=== PATIENT | male | born 1940 | race African-American/Black ===

== ENCOUNTER 2016-10-26 17:50 | Emergency (ER) | payer OTHER ==
[2016-10-26 17:55] VITALS: BP 149/70; PULSE 102; TEMP 97.9; BMI 29.0
[2016-10-26] MEDS ORDERED: ACETAMINOPHEN 500 MG TABLET (FP) PO ONE (18:17)
[2016-10-26] MEDS ORDERED: DIPHTH,PERTUSS(ACELL),TET 0.5 ML DISP.SYRIN IM ONE (18:17)
--- NOTE | 2016-10-26 18:21 | PDOC ---
History of Present Illness - General Chief Complaint: Injury Stated Complaint: INJURY Time Seen by Provider: 10/26/16 18:11 History Source: Patient Exam Limitations: No Limitations - History of Present Illness Initial Comments: 10/26/16 18:16 While assisting his disabled both stumbled while riding an escalator down. He fell while trying to catch his striking his right knee, right shoulder and upper arm and abrading his left index finger. No head injury, no torso injury, patient denies significant bone injury, feels is probably just bruised. 10/26/16 18:24 Occurred: reports: just prior to arrival, this afternoon Severity: reports: mild, moderate Pain Location: reports: lower extremity (right knee ), upper extremity (right arm -) Modifying Factors: improves with: None Loss of Consciousness: no loss of consciousness Associated Symptoms (Fall): denies symptoms Past History - Travel Traveled outside of the country in the last 30 days: No Close contact w/someone who was outside of country & ill: No - Past Medical History Allergies/Adverse Reactions: Allergies Allergy/AdvReac Type Severity Reaction Status Date / Time No Known Allergies Allergy Verified 10/26/16 17:55 Home Medications: Ambulatory Orders Aspirin Coated [Ecotrin -] 81 mg PO DAILY 07/08/14 Calcium Citrate/Vitamin D3 [Citracal-Vit D 200 mg-250 Tab] 2 each PO DAILY 07/08 Metformin HCl [Glucophage] 500 mg PO DAILY 07/08/14 Metoprolol Succinate [Toprol XL -] 25 mg PO DAILY 07/08/14 Multivitamin/Iron/Folic Acid [One Daily Multivitamin-Iron Tb] 1 each PO DAILY Quinapril HCl [Accupril -] 20 mg PO DAILY 07/08/14 Salmeterol/Fluticasone [Advair 100Mcg/50Mcg -] 1 inh PO BID 07/08/14 Asthma: Yes Cancer: Yes (PROSTATE) Diabetes: Yes (NIDDM) GI Disorders: Yes (DIVERTICULOSIS, HH) Disorders: Yes (BPH) HTN: Yes Hypercholesterolemia: Yes - Surgical History Abdominal Surgery: Yes (LAP CHOLY) Cholecystectomy: Yes - Psycho/Social/Smoking Cessation Hx Suicidal Ideation: No Smoking History: Never smoked Have you smoked in the past 12 months: No If you are a former smoker, when did you quit?: 1982 Information on smoking cessation initiated: No Hx Alcohol Use: No Drug/Substance Use Hx: No Substance Use Type: None Trauma Specific PMHX - Complaint Specific PMHX Back Injury: No Neck Injury: No Review of Systems - Review of Systems Able to Perform ROS?: Yes Is the patient limited Lithuanian proficient: Yes Constitutional: Yes: Symptoms Reported, See HPI, Malaise HEENTM: No: Symptoms Reported Respiratory: No: Symptoms reported Musculoskeletal: Yes: Symptoms Reported, See HPI Integumentary: Yes: Symptoms Reported, See HPI, Bruising Neurological: No: Symptoms reported All Other Systems: Reviewed and Negative *Physical Exam - Vital Signs Last Vital Signs Temp Pulse Resp BP Pulse Ox 97.9 F 102 H 18 149/70 99 10/26/16 17:52 10/26/16 17:52 10/26/16 17:52 10/26/16 17:52 10/26/16 17:52 - Physical Exam General Appearance: Yes: Nourished, Appropriately Dressed, Apparent Distress, Mild Distress HEENT: positive: SAMUEL, TMs Normal, Pharynx Normal Neck: positive: Supple Respiratory/Chest: positive: Normal Breath Sounds Gastrointestinal/Abdominal: positive: Normal Bowel Sounds, Soft. negative: Tender Musculoskeletal: positive: Decreased Range of Motion (superficial abrasion and swelling to right knee and bruising to patellar area. No crepitus or step-offs, patient is ambulatory without unsteadiness or limp. No femur tenderness no tibial tenderness. Neurovascular intact to foot). negative: Normal Inspection Extremity: positive: Normal Capillary Refill, Normal Inspection, Normal Range of Motion, Swelling Integumentary: positive: Normal Color, Ecchymosis, Bruising (hematoma and bruise to midpoint right humerus, soft tissue swelling, no bony injury and full range of motion to shoulder and elbow without pain on supination and pronation. Strong grasp to right hand. 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 Patient bruising to 2 daily aspirin use. Tetanus/diphtheria/ pertussis booster updated today *DC/Admit/Observation/Transfer Diagnosis at time of Disposition: Multiple contusions - Discharge Dispostion Disposition: HOME Condition at time of disposition: Stable Admit: No - Patient Instructions Printed Discharge Instructions: DI for Contusion Additional Instructions: Rest, ice to area on and off for 15 minutes 4-6 times a day Avoid heavy lifting or exercise until pain and swelling is resolved or until further directed Keep area highly elevated to reduce swelling Followup with orthopedist in one to 2 days if not improving, if significantly improved may wait one week for followup with orthopedist May use Tylenol 2- 325mg tablets every 6 hours as needed for pain Your tetanus/diphtheria/pertussis booster was updated today
[2016-10-26] MEDS ORDERED: ACETAMINOPHEN 325 MG TABLET (FP) ONE (18:22)
== END 2016-10-26 19:01 | disposition home or self-care (01) ==
LOC: JERFT 17:50
PROC: 3E0234Z Introduction of Serum, Toxoid and Vaccine into Muscle, Percutaneous Approach (ICD-10-PCS; principal; 2016-10-26)
DX: T14.8 Other injury of unspecified body region (principal); W10.0XXA Fall (on)(from) escalator, initial encounter; Y93.89 Activity, other specified; Y92.9 Unspecified place or not applicable; J45.909 Unspecified asthma, uncomplicated; Z85.46 Personal history of malignant neoplasm of prostate; I10 Essential (primary) hypertension; E78.00 Pure hypercholesterolemia, unspecified; Z87.891 Personal history of nicotine dependence
CPT/HCPCS: 90715; 99281-25